=== PATIENT | male | born 1985 | race Caucasian/White ===

== ENCOUNTER 2017-07-10 08:34 | Emergency (ER) | payer OTHER ==
[~2017-07-10] VITALS: Ht 172.7 cm; Wt 68.0 kg
[~2017-07-10 08:34] MED LIST: ABILIFY; ACETAMINOPHEN-1 EAC1 PO; ADDERALL 20 MG20 M1 PO; ADVAIR HFA 230M12 GM; ALBUTEROL INHAL17 GM IH; ALLERGY10 MG PO; AMOXICILLIN 50500 MG PO; AMOXICILLIN500 M1 PO; ATIVAN0.5 MG PO; ATIVAN1 MG PO; AUGMENTIN 875875 MG PO; AZITHROMYCIN 2250 MG PO; CELEXA 20 MG TA20 M1 PO; CELEXA20 MG PO; CHILDREN'S50 MG/1.24; CLARITIN10 MG PO; CLEOCIN HCL150 MG PO; CLONAZEPAM; CLONAZEPAM 0.50.5 M1 PO; DEPAKOTE ER500 MG PO; DEPAKOTE500 MG PO; FLEXERIL PO; FLOXIN OTI0.3 %/5 M1 OT; GENTAMICIN OPH3.5 G1 OPHTHALMIC; HYDROCODON-ACE1 EA11 PO; HYDROCODON-ACE1 EAC7 PO; IBUPROFEN 800800 M1 PO; IBUPROFEN 800800 MG PO; K-TAB10 MEQ PO; KEFLEX500 M1 PO; LEVAQUIN 500 M500 MG PO; LOPERAMIDE 2 MG2 M1 PO; MEDROLDOSEPACK PO; MIRALAX255 GM PO; MOBIC7.5 MG PO; NAPROSYN500 MG; NAPROSYN500 MG PO; NEURONTIN 300300 M1 PO; NOHOMEMEDICATIONS; NORCO 5-325 TA1 EACH PO; NORFLEX100 MG PO; PENICILLIN V P500 MG PO; PERIDEX 0.12%473 M1 SSP; PHENERGAN 25 MG25 M1 PO; PREDNISONE 20 M20 M1 PO; PREDNISONE 20 M20 MG PO; PREDNISONE50 MG PO; PROAIR HFA8.5 GM INH; PROMETHAZINE D480 ML PO; PROMETHAZINE-D120 ML PO; PROMETHAZINE12.5 M1 PO; QUETIAPINE FUM100 MG PO; SEROQUEL 100 M100 MG; SEROQUEL 100 M100 MG PO; SEROQUEL XR400 M1 PO; SEROQUEL XR50 MG; TESSALON PERLE100 M1 PO; TESSALON PERLE100 MG PO; ULTRAM 50MG TAB50 MG PO; VENTOLIN HFA 1818 GM INH; VISTARIL 25 MG25 M1; VISTARIL 25 MG25 M1 PO; XANAX 0.25 MG0.25 MG PO; ZOFRAN 4 MG ORAL4 M1 DIS; ZOFRAN ODT4 MG PO; ZOFRAN4 MG PO; ZPAK PO; ZYRTEC10 M2 PO; [UNRECOGNIZED DRUG - OTHER] PO; magic mouthwash PO
[2017-07-10 09:39] LABS: CALCIUM 8.8 mg/dL (8.5-10.1); POTASSIUM 3.5 mmol/L (3.5-5.1)
[2017-07-10] MEDS ORDERED: LEVAQUIN 750 M750 MG PO (10:12)
[2017-07-10 10:31] VITALS: BP 125/70
== END 2017-07-10 10:32 | disposition home or self-care (01) ==
LOC: M.ERS 08:34
PROVIDERS: Emergency Medicine Emergency Medical Services
DX: R51 Headache (principal); F41.9 Anxiety disorder, unspecified; F31.9 Bipolar disorder, unspecified; F17.210 Nicotine dependence, cigarettes, uncomplicated; Z90.49 Acquired absence of other specified parts of digestive tract

== ENCOUNTER 2017-08-21 13:38 | Emergency (ER) | payer OTHER ==
[~2017-08-21] VITALS: Ht 172.7 cm; Wt 70.3 kg
[~2017-08-21 13:38] MED LIST changes: +LEVAQUIN 750 M750 MG PO
[2017-08-21] MEDS ORDERED: TRAMADOL 50 MG50 MG PO (14:23)
[2017-08-21] MEDS ORDERED: NAPROSYN500 MG PO (14:23)
[2017-08-21 14:36] VITALS: BP 119/92
== END 2017-08-21 14:37 | disposition home or self-care (01) ==
LOC: M.ERS 13:38
DX: M77.9 Enthesopathy, unspecified (principal); M25.531 Pain in right wrist; F31.9 Bipolar disorder, unspecified; F17.210 Nicotine dependence, cigarettes, uncomplicated; Z90.49 Acquired absence of other specified parts of digestive tract

== ENCOUNTER 2017-10-24 09:37 | Emergency (ER) | payer OTHER ==
[~2017-10-24] VITALS: Ht 172.7 cm; Wt 70.3 kg
[~2017-10-24 09:37] MED LIST changes: +TRAMADOL 50 MG50 MG PO
[2017-10-24] MEDS ORDERED: MEDROLDOSEPACK PO (09:58)
[2017-10-24 10:31] VITALS: BP 122/81
== END 2017-10-24 10:32 | disposition home or self-care (01) ==
LOC: M.ERS 09:37
DX: S00.86XA Insect bite (nonvenomous) of other part of head, initial encounter (principal); R22.0 Localized swelling, mass and lump, head; F31.9 Bipolar disorder, unspecified; F41.9 Anxiety disorder, unspecified; F17.210 Nicotine dependence, cigarettes, uncomplicated; Z90.49 Acquired absence of other specified parts of digestive tract; W57.XXXA Bitten or stung by nonvenomous insect and other nonvenomous arthropods, initial encounter; Y93.89 Activity, other specified; Y92.89 Other specified places as the place of occurrence of the external cause; Y99.8 Other external cause status

== ENCOUNTER 2017-12-24 13:26 | Emergency (ER) | payer OTHER ==
[~2017-12-24] VITALS: Ht 172.7 cm; Wt 65.8 kg
[2017-12-24 15:28] VITALS: BP 125/80
== END 2017-12-24 15:28 | disposition home or self-care (01) ==
LOC: M.ERS 13:26
DX: F31.9 Bipolar disorder, unspecified (principal); F41.9 Anxiety disorder, unspecified; Z90.49 Acquired absence of other specified parts of digestive tract; F17.210 Nicotine dependence, cigarettes, uncomplicated

== ENCOUNTER 2018-01-05 14:28 | Emergency (ER) | payer OTHER ==
[~2018-01-05] VITALS: Ht 172.7 cm; Wt 65.8 kg
[2018-01-05] MEDS ORDERED: NORCO 5-325 TA1 EACH PO (15:41)
[2018-01-05 15:59] VITALS: BP 119/79
== END 2018-01-05 16:00 | disposition home or self-care (01) ==
LOC: M.ERS 14:28
DX: M25.511 Pain in right shoulder (principal); M25.561 Pain in right knee; F17.210 Nicotine dependence, cigarettes, uncomplicated; F41.9 Anxiety disorder, unspecified; F31.9 Bipolar disorder, unspecified; Z90.49 Acquired absence of other specified parts of digestive tract

== ENCOUNTER 2018-02-14 16:10 | Emergency (ER) | payer OTHER ==
[~2018-02-14] VITALS: Ht 172.7 cm; Wt 70.3 kg
[2018-02-14] MEDS ORDERED: LEXAPRO 10 MG T10 M2 PO (16:19)
[2018-02-14 17:41] LABS: INFLUENZA A ANTIGEN None Detected (None Detect); INFLUENZA B ANTIGEN None Detected (None Detect)
[2018-02-14] MEDS ORDERED: TESSALON PERLE100 MG PO (17:48)
[2018-02-14] MEDS ORDERED: MUCINEX DM ER1 EACH PO (17:48)
[2018-02-14] MEDS ORDERED: PROAIR HFA8.5 GM INH (17:48)
[2018-02-14 17:54] VITALS: BP 120/66
== END 2018-02-14 17:55 | disposition home or self-care (01) ==
LOC: M.ERS 16:10
PROVIDERS: Nurse Practitioner Family
DX: J06.9 Acute upper respiratory infection, unspecified (principal); F41.9 Anxiety disorder, unspecified; F31.9 Bipolar disorder, unspecified; F17.210 Nicotine dependence, cigarettes, uncomplicated; Z90.49 Acquired absence of other specified parts of digestive tract

== ENCOUNTER 2018-07-13 11:31 | Emergency (ER) | payer OTHER ==
[~2018-07-13] VITALS: Ht 172.7 cm; Wt 61.2 kg
[~2018-07-13 11:31] MED LIST changes: +LEXAPRO 10 MG T10 M2 PO; +MUCINEX DM ER1 EACH PO
[2018-07-13] MEDS ORDERED: VYVANSE10 MG PO (11:44)
[2018-07-13] MEDS ORDERED: XANAX1 MG PO (11:45)
[2018-07-13 12:05] LABS: ABSOLUTE EOSINOPHILS 0.1 thou/uL (0.0-0.7); ABSOLUTE LYMPHOCYTES 2.3 thou/uL (0.8-5.3); ABSOLUTE MONOCYTES 0.5 thou/uL (0.0-1.2); ABSOLUTE NEUTROPHILS 5.4 thou/uL (1.6-8.1); BASOPHILS 0.5 %; EOSINOPHILS 0.8 %; HEMATOCRIT 42.2 % (42.0-52.0); HEMOGLOBIN 14.7 gm/dL (14.0-18.0); LYMPHOCYTES 27.4 %; MCH 31.5 pg (26.0-34.0); MCHC 34.8 g/dL (28.0-37.0); MCV 90.6 fL (80.0-100.0); MONOCYTES 6.3 %; MPV 7.3 fl. (7.2-11.1); NUCLEATED RBCS 0 /100WBC; PLATELET COUNT* 289 thou/uL (150-400); RBC 4.65 mil/uL (4.50-6.00); RDW-CV 12.9 % (10.5-14.5); WBC 8.3 thou/uL (4.0-11.0)
[2018-07-13 12:24] LABS: URINE BILIRUBIN NEGATIVE (Negative); URINE BLOOD NEGATIVE (Negative); URINE CLARITY CLEAR; URINE COLOR YELLOW; URINE GLUCOSE-RANDOM NEGATIVE (Negative); URINE KETONES NEGATIVE (Negative); URINE LEUKOCYTES-REFLEX NEGATIVE (Negative); URINE NITRITE-REFLEX NEGATIVE (Negative); URINE PROTEIN NEGATIVE (Negative); URINE UROBILINOGEN 0.2 E.U./dl (0.2-1.0)
[2018-07-13 12:26] LABS: ALBUMIN 3.6 g/dL (3.4-5.0); CALCIUM 8.5 mg/dL (8.5-10.1); CREATININE 0.8 mg/dL (0.6-1.3); POTASSIUM 3.7 mmol/L (3.5-5.1); TOTAL BILIRUBIN 0.1 mg/dL (<0.1-1.0)
[2018-07-13] MEDS ORDERED: MEDROLDOSEPACK PO (12:55)
[2018-07-13] MEDS ORDERED: ONDANSETRON HCL4 M2 PO (12:55)
[2018-07-13] MEDS ORDERED: PROAIR HFA8.5 GM INH (12:56)
[2018-07-13 13:11] VITALS: BP 126/64
== END 2018-07-13 13:12 | disposition home or self-care (01) ==
LOC: M.ERS 11:31
PROVIDERS: Physician Assistant
DX: J20.9 Acute bronchitis, unspecified (principal); R11.2 Nausea with vomiting, unspecified; F41.9 Anxiety disorder, unspecified; F31.9 Bipolar disorder, unspecified; Z90.49 Acquired absence of other specified parts of digestive tract; F17.210 Nicotine dependence, cigarettes, uncomplicated

== ENCOUNTER 2018-11-27 15:57 | Emergency (ER) | payer OTHER ==
[~2018-11-27] VITALS: Ht 172.7 cm; Wt 63.5 kg
[~2018-11-27 15:57] MED LIST changes: +ONDANSETRON HCL4 M2 PO; +VYVANSE10 MG PO; +XANAX1 MG PO
[2018-11-27] MEDS ORDERED: CONCERTA36 MG PO (16:10)
[2018-11-27] MEDS ORDERED: HYDROCORTISONE3011 TOP (16:15)
[2018-11-27] MEDS ORDERED: PREDNISONE 20 M20 MG PO (16:15)
[2018-11-27] MEDS ORDERED: HYDROXYZINE HCL25 M2 PO (16:15)
[2018-11-27 16:33] VITALS: BP 128/90
== END 2018-11-27 16:35 | disposition home or self-care (01) ==
LOC: M.ERS 15:57
DX: S90.561A Insect bite (nonvenomous), right ankle, initial encounter (principal); S90.562A Insect bite (nonvenomous), left ankle, initial encounter; S30.861A Insect bite (nonvenomous) of abdominal wall, initial encounter; S40.862A Insect bite (nonvenomous) of left upper arm, initial encounter; S40.861A Insect bite (nonvenomous) of right upper arm, initial encounter; F41.9 Anxiety disorder, unspecified; F31.9 Bipolar disorder, unspecified; F90.9 Attention-deficit hyperactivity disorder, unspecified type; F17.210 Nicotine dependence, cigarettes, uncomplicated; Z90.49 Acquired absence of other specified parts of digestive tract; Z88.6 Allergy status to analgesic agent; W57.XXXA Bitten or stung by nonvenomous insect and other nonvenomous arthropods, initial encounter; Y92.89 Other specified places as the place of occurrence of the external cause; Y93.89 Activity, other specified; Y99.0 Civilian activity done for income or pay

== ENCOUNTER 2019-03-15 09:00 | Emergency (ER) | payer OTHER ==
[~2019-03-15] VITALS: Ht 172.7 cm; Wt 68.0 kg
[~2019-03-15 09:00] MED LIST changes: +CONCERTA36 MG PO; +HYDROCORTISONE3011 TOP; +HYDROXYZINE HCL25 M2 PO
[2019-03-15 09:26] LABS: URINE BILIRUBIN NEGATIVE (Negative); URINE BLOOD NEGATIVE (Negative); URINE CLARITY CLEAR; URINE COLOR YELLOW; URINE GLUCOSE-RANDOM NEGATIVE (Negative); URINE KETONES NEGATIVE (Negative); URINE LEUKOCYTES-REFLEX NEGATIVE (Negative); URINE NITRITE-REFLEX NEGATIVE (Negative); URINE PROTEIN NEGATIVE (Negative); URINE UROBILINOGEN 0.2 E.U./dl (0.2-1.0)
[2019-03-15 09:35] LABS: ABSOLUTE EOSINOPHILS 0.2 thou/uL (0.0-0.7); ABSOLUTE LYMPHOCYTES 2.2 thou/uL (0.8-5.3); ABSOLUTE MONOCYTES 0.4 thou/uL (0.0-1.2); ABSOLUTE NEUTROPHILS 3.1 thou/uL (1.6-8.1); BASOPHILS 0.7 %; HEMATOCRIT 41.6 % (42.0-52.0); HEMOGLOBIN 14.3 gm/dL (14.0-18.0); LYMPHOCYTES 37.1 %; MCH 31.5 pg (26.0-34.0); MCHC 34.4 g/dL (28.0-37.0); MCV 91.7 fL (80.0-100.0); MPV 7.3 fl. (7.2-11.1); NUCLEATED RBCS 0 /100WBC; PLATELET COUNT* 273 thou/uL (150-400); POLYS 52.2 %; RBC 4.53 mil/uL (4.50-6.00); RDW-CV 13.7 % (10.5-14.5); WBC 5.9 thou/uL (4.0-11.0)
[2019-03-15 09:42] LABS: CALCIUM 9.3 mg/dL (8.5-10.1); POTASSIUM 3.8 mmol/L (3.5-5.1)
[2019-03-15 09:47] LABS: ALBUMIN 3.8 g/dL (3.4-5.0); TOTAL BILIRUBIN 0.3 mg/dL (<0.1-1.0); TOTAL PROTEIN 7.3 g/dL (6.4-8.2)
[2019-03-15 09:50] LABS: APTT 27.1 Seconds (25.0-31.3); PROTIME 10.5 Seconds (9.20-11.50)
[2019-03-15 11:07] VITALS: BP 136/98
--- NOTE | 2019-03-15 16:55 | EKG ---
[place] [address] ELECTROCARDIOGRAM REPORT Name: WANDA COFFMAN Room: [facility]#: [id number] Admission: 03/15/19 Attend Phys: Discharge: 03/15/19 Date of : 85 Report #: [id number] THIS REPORT FOR: //name// [facility] ED Test Date: 2019-03-15 Test Time: 09:23:14 Pat Name: WANDA COFFMAN Department: Room: Gender: [employer] Prescription Clerk: : 1985 Requested By: Octavio Saleem Order Number: [id number] MD: Conner Harden Measurements Intervals [place] Rate: 52 P: 0 DC: 130 QRS: 87 QRSD: 118 T: 69 QT: 407 QTc: 379 Interpretive Statements Sinus bradycardia Incomplete right bundle branch block ST elev, probable normal early repol pattern Compared to ECG 07/29/2016 23:28:28 ST (T wave) deviation still present Electronically Signed On 03-15-2019 16:54:40 [employer] by Conner Harden [email or web address] <ELECTRONICALLY SIGNED> By: Conner Harden MD, [facility] 03/15/19 1654 2 2 Conner Harden MD, [facility] /EPI
== END 2019-03-15 11:08 | disposition home or self-care (01) ==
LOC: M.ERS 09:00
PROVIDERS: Family Medicine
DX: R55 Syncope and collapse (principal); F41.9 Anxiety disorder, unspecified; F31.9 Bipolar disorder, unspecified; F17.210 Nicotine dependence, cigarettes, uncomplicated; F90.9 Attention-deficit hyperactivity disorder, unspecified type; Z90.49 Acquired absence of other specified parts of digestive tract; Z88.8 Allergy status to other drugs, medicaments and biological substances

== ENCOUNTER 2019-08-05 07:17 | Emergency (ER) | payer OTHER ==
[~2019-08-05] VITALS: Ht 175.3 cm; Wt 68.0 kg
[2019-08-05] MEDS ORDERED: DOXYCYCLINE 10100 MG PO (08:39)
[2019-08-05 08:51] VITALS: BP 136/80
== END 2019-08-05 08:54 | disposition home or self-care (01) ==
LOC: M.ERS 07:17
DX: J40 Bronchitis, not specified as acute or chronic (principal); F17.210 Nicotine dependence, cigarettes, uncomplicated; Z88.5 Allergy status to narcotic agent; Z88.6 Allergy status to analgesic agent; Z90.49 Acquired absence of other specified parts of digestive tract

== ENCOUNTER 2020-02-13 08:45 | Emergency (ER) | payer OTHER ==
[~2020-02-13] VITALS: Ht 175.3 cm; Wt 70.3 kg
[~2020-02-13 08:45] MED LIST changes: +DOXYCYCLINE 10100 MG PO
[2020-02-13] MEDS ORDERED: CONCERTA36 M1 PO ×2 (08:58→08:59)
[2020-02-13] MEDS ORDERED: SEROQUEL300 MG PO (09:00)
[2020-02-13] MEDS ORDERED: NORCO 5-325 TA1 EAC2 PO (12:34)
[2020-02-13] MEDS ORDERED: FLEXERIL PO (12:34)
[2020-02-13] MEDS ORDERED: IBUPROFEN 800800 M1 PO (12:34)
[2020-02-13] MEDS ORDERED: PREDNISONE50 MG PO (12:34)
[2020-02-13 12:48] VITALS: BP 134/72
== END 2020-02-13 12:49 | disposition home or self-care (01) ==
LOC: M.ERS 08:45
DX: S46.911A Strain of unspecified muscle, fascia and tendon at shoulder and upper arm level, right arm, initial encounter (principal); F31.9 Bipolar disorder, unspecified; F41.9 Anxiety disorder, unspecified; F90.9 Attention-deficit hyperactivity disorder, unspecified type; F17.210 Nicotine dependence, cigarettes, uncomplicated; Z90.49 Acquired absence of other specified parts of digestive tract; Z79.899 Other long term (current) drug therapy; Z88.5 Allergy status to narcotic agent; Z88.8 Allergy status to other drugs, medicaments and biological substances; X50.0XXA Overexertion from strenuous movement or load, initial encounter; Y93.89 Activity, other specified; Y92.89 Other specified places as the place of occurrence of the external cause; Y99.8 Other external cause status